=== PATIENT | female | born 1975 | race Caucasian/White ===

== ENCOUNTER → 2016-11-24 | Outpatient (CLI) | payer OTHER | LOC: KOH-I 10-23 15:00 | DX: M79.672 Pain in left foot (principal); R93.7 Abnormal findings on diagnostic imaging of other parts of musculoskeletal system | CPT/HCPCS: 73720; A9577 ==

== ENCOUNTER 2020-09-01 16:33 | Emergency (ER) | payer BC, OTHER ==
[~2020-09-01 16:33] MED LIST: ATIVAN0.5 MG PO; BENTYL 20MG TAB20 MG PO; CYMBALTA60 MG PO; ENULOSE10 GM/15 M PO; ESTRACE2 MG PO; IMITREX6 MG/0.51 SC; KLONOPIN1 MG PO; LYRICA150 MG PO; MOBIC15 MG PO; NEURONTIN 300300 MG PO; NORCO 7.5-3251 EACH PO; OMEPRAZOLE20 MG PO; PHENERGAN 25 MG25 MG PR; REQUIP0.5 MG PO; SYNTHROID25 MCG PO; TOPAMAX200 MG PO; ULTRAM50 MG PO; ZANAFLEX4 MG PO; ZESTRIL10 MG PO
[2020-09-01 19:20] LABS: HEMOGLOBIN 13.4 gm/dl (12.3-15.3); RED BLOOD COUNT 4.69 M/UL (4.00-5.10); WHITE BLOOD COUNT 5.6 K/UL (4.5-11.0)
[2020-09-01 19:43] LABS: BUN/CREATININE RATIO 9 (0-10)
[2020-09-01] MEDS ORDERED: VIBRAMYCIN 100100 MG PO (21:32)
== END 2020-09-02 00:10 | disposition home or self-care (01) ==
LOC: ER1 16:33
PROVIDERS: Emergency Medicine
DX: U07.1 COVID-19 (principal)
CPT/HCPCS: 36600; 70450; 71045; 80053; 82550; 82553; 82803; 83605; 83735; 83880; 84100; 84484; 84703; 85025; 85379; 85610; 85730; 86140; 87040; 87635; 93005; 96365; 96375; 99285; J0696; J1885; J7030; M0239

== ENCOUNTER → 2020-11-19 | Outpatient (CLI) | payer BC, OTHER ==
[~2020-11-19] MED LIST changes: +VIBRAMYCIN 100100 MG PO
[2020-11-20 08:13] LABS: RHEUMATOID ARTHRITIS FACTOR <10.0 IU/mL (0.0-13.9)
[2020-11-22 16:10] LABS: ALDOLASE <1.2 U/L (3.3-10.3)
== END ==
LOC: LAB 11:16
PROVIDERS: Internal Medicine
DX: M25.50 Pain in unspecified joint (principal); G89.29 Other chronic pain; M79.7 Fibromyalgia; R53.83 Other fatigue; Z87.2 Personal history of diseases of the skin and subcutaneous tissue
CPT/HCPCS: 36415; 72202; 82085; 82550; 82728; 83520; 84439; 84443; 86431

== ENCOUNTER 2021-11-14 00:55 | Emergency (ER) | payer BC ==
[2021-11-14 02:19] LABS: HEMOGLOBIN 14.3 gm/dl (12.3-15.3); RED BLOOD COUNT 4.82 M/UL (4.00-5.10); WHITE BLOOD COUNT 13.1 K/UL (4.5-11.0)
[2021-11-14 02:41] LABS: BUN/CREATININE RATIO 11 (0-10)
[2021-11-14] MEDS ORDERED: TORADOL 10 MG T10 MG PO (04:30)
[2021-11-14] MEDS ORDERED: COLACE 100MG C100 MG PO (04:30)
== END 2021-11-14 04:38 | disposition home or self-care (01) ==
LOC: ER1 00:55
DX: K59.00 Constipation, unspecified (principal); J18.9 Pneumonia, unspecified organism; R10.11 Right upper quadrant pain; E03.9 Hypothyroidism, unspecified; F32.9 Major depressive disorder, single episode, unspecified; Z90.710 Acquired absence of both cervix and uterus; G43.909 Migraine, unspecified, not intractable, without status migrainosus
CPT/HCPCS: 80053; 81001; 83690; 85025; 87086; 96374; 96375; 99284; J1170; J1885; J2405